=== PATIENT | female | born 1965 | race African-American/Black ===

== ENCOUNTER 2017-08-01 19:46 | Inpatient (IN) | payer OTHER ==
[2017-08-01 20:19] VITALS: BMI 34.7
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
[2017-08-01] MEDS ORDERED: MAGNESIUM HYDROX 2400MG/30ML ORAL SUSPENSION 30 ML CUP PO PRN (21:45)
[2017-08-01] MEDS ORDERED: NICOTINE POLACRILEX 2 MG GUM BC PRN (21:45)
[2017-08-01] MEDS ORDERED: hydrOXYzine PAMOATE 50 MG CAPSULE (FP) PO PRN (21:45)
[2017-08-01] MEDS ORDERED: P-EPHED 60MG/TRIPROLIDI 2.5MG TABLET PO PRN (21:45)
[2017-08-01] MEDS ORDERED: MAGNESIUM CITRATE 300 ML BOTTLE PO PRN (21:45)
[2017-08-01] MEDS ORDERED: guaiFENesin/D-METHORPHAN HB 10 ML UNIT-DOSE CUPS PO PRN (21:45)
[2017-08-01] MEDS ORDERED: LOPERAMIDE HCL 2 MG CAPSULE PO PRN (21:45)
[2017-08-01] MEDS ORDERED: MENTHOL/PHENOL 1 EACH UD MM PRN (21:45)
[2017-08-01] MEDS ORDERED: ALBUTEROL SO4 18 GM HFA INHALER IH PRN (22:35)
[2017-08-02 00:46] LABS: URINE APPEARANCE SLCLOUDY; URINE BILIRUBIN NEGATIVE (NEGATIVE); URINE BLOOD NEGATIVE (NEGATIVE); URINE COLOR YELLOW; URINE GLUCOSE (UA) NEGATIVE (NEGATIVE); URINE KETONE NEGATIVE (NEGATIVE); URINE NITRITE NEGATIVE (NEGATIVE); URINE PROTEIN NEGATIVE (NEGATIVE); URINE UROBILINOGEN NEGATIVE mg/dL (0.2-1.0)
[2017-08-02 00:50] LABS: URINE LEUK ESTERASE 1+ (NEGATIVE)
[2017-08-02 01:04] LABS: EPI CELLS MODERATE /HPF (FEW); URINE MUCUS RARE
[2017-08-02] MEDS: THIAMINE HCL 100 MG TABLET (FP) PO SCH ×2 (01:26→21:38)
[2017-08-02] MEDS: PRENATAL VITAMINS W/ FOLIC ACID TABLET (FP) PO SCH (10:35)
[2017-08-02] MEDS: amLODIPine BESYLATE 5 MG TABLET (FP) PO SCH (10:35)
[2017-08-02] MEDS: NICOTINE 14 MG/24 HOURS TOPICAL PATCH TD SCH (10:36)
[2017-08-02] MEDS: BUDESONIDE/FORMETEROL FUMARATE 80/4.5 mcg INHALER IH SCH ×2 (11:45→21:39)
[2017-08-02] MEDS ORDERED: FLU VACCINE QUAD 60 MCG/0.5 ML (MDV 17-18) IM ONE (12:00)
[2017-08-02 16:25] LABS: HEMATOCRIT 40.5 % (32.4-45.2); HEMOGLOBIN 13.6 GM/dL (10.7-15.3); MCH 33.8 pg (25.7-33.7); MCHC 33.6 g/dl (32.0-36.0); MEAN CELL VOLUME 100.6 fl (80-96); MEAN PLT VOLUME 8.7 fl (7.5-11.1); RBC 4.02 M/mm3 (3.60-5.2); RDW 12.7 % (11.6-15.6); WHITE BLOOD COUNT 5.8 K/mm3 (4.0-10.0)
--- NOTE | 2017-08-02 16:34 | EKG ---
Test Reason : Blood Pressure : / mmHG Vent. Rate : 083 BPM Atrial Rate : 083 BPM P-R Int : 142 ms QRS Dur : 078 ms QT Int : 372 ms P-R-T Axes : 063 058 057 degrees QTc Int : 437 ms NORMAL SINUS RHYTHM NORMAL ECG WHEN COMPARED WITH ECG OF 04-JUL-2014 15:57, NONSPECIFIC T WAVE ABNORMALITY NO LONGER EVIDENT IN ANTERIOR LEADS Confirmed by MINA KESSLER MD ([id number]) on 08/02/2017 4:34:11 PM Referred By: Confirmed By:MINA KESSLER MD
[2017-08-02 16:38] LABS: ALBUMIN 3.4 g/dl (3.4-5.0); ALK PHOS 82 U/L (45-117); ANION GAP 9 (8-16); BILIRUBIN,TOTAL 0.2 mg/dL (0.2-1.0); BLOOD UREA NITROGEN 23 mg/dL (7-18); CALCIUM 9.6 mg/dL (8.5-10.1); CHLORIDE 103 mmol/L (98-107); CO2 29 mmol/L (21-32); CREATININE 1.2 mg/dL (0.55-1.02); GLUCOSE,RANDOM 122 mg/dL (74-106); POTASSIUM 4.3 mmol/L (3.5-5.1); SGOT/AST 23 U/L (15-37); SGPT/ALT 39 U/L (12-78); SODIUM 141 mmol/L (136-145); TOT PROT 6.9 g/dl (6.4-8.2)
[2017-08-02 16:49] LABS: PLATELET COUNT 237 K/MM3 (134-434)
--- NOTE | 2017-08-02 18:54 | PN ---
S Progress Note Note: Psychiatry Attending's on-call note : Asked to enter orders for medications. Request for depakote,abilify and trazodone. Met with patient.S report reviewed. Patient is a good historian. Discharged from [facility] 0n 08/01/17. Diagnosis : Bipolar Disorder and PTSD. Stable mental status. Patient is eager to resume medications. Discharge summary from [facility] seen. Medications confirmed as : Depakote 500 mg po bid Abilify 10 mg po daily Trazodone 50 mg po hs All resumed.Side effects/benefits Discussed with patient (each drug). Consent (verbal) given for this careplan. Met with patient in the presence of nurse on duty.
[2017-08-02] MEDS: MONTELUKAST NA 10 MG TABLET PO SCH (21:38)
[2017-08-02] MEDS: DIVALPROEX SODIUM 500 MG TABLET E.C. PO SCH (21:38)
[2017-08-02] MEDS: traZODone HCL 50 MG TABLET (FP) PO SCH (21:38)
[2017-08-02] MEDS ORDERED: traZODone HCL 150 MG TABLET PO SCH (22:00)
[2017-08-03] MEDS: NICOTINE 14 MG/24 HOURS TOPICAL PATCH TD SCH (10:04)
[2017-08-03] MEDS: ARIPiprazole 10 MG TABLET PO SCH (10:05)
[2017-08-03] MEDS: BUDESONIDE/FORMETEROL FUMARATE 80/4.5 mcg INHALER IH SCH ×2 (10:05→21:57)
[2017-08-03] MEDS: amLODIPine BESYLATE 5 MG TABLET (FP) PO SCH (10:05)
[2017-08-03] MEDS: DIVALPROEX SODIUM 500 MG TABLET E.C. PO SCH ×2 (10:05→21:57)
[2017-08-03] MEDS: PRENATAL VITAMINS W/ FOLIC ACID TABLET (FP) PO SCH (10:05)
[2017-08-03] MEDS: MONTELUKAST NA 10 MG TABLET PO SCH (21:57)
[2017-08-03] MEDS: traZODone HCL 50 MG TABLET (FP) PO SCH (21:57)
[2017-08-03] MEDS: THIAMINE HCL 100 MG TABLET (FP) PO SCH (21:57)
[2017-08-04] MEDS: DIVALPROEX SODIUM 500 MG TABLET E.C. PO SCH ×2 (09:23→21:51)
[2017-08-04] MEDS: ARIPiprazole 10 MG TABLET PO SCH (09:23)
[2017-08-04] MEDS: PRENATAL VITAMINS W/ FOLIC ACID TABLET (FP) PO SCH (09:23)
[2017-08-04] MEDS: BUDESONIDE/FORMETEROL FUMARATE 80/4.5 mcg INHALER IH SCH ×2 (09:24→21:52)
[2017-08-04] MEDS: NICOTINE 14 MG/24 HOURS TOPICAL PATCH TD SCH (09:24)
[2017-08-04] MEDS: amLODIPine BESYLATE 5 MG TABLET (FP) PO SCH (09:24)
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
[2017-08-04] MEDS: THIAMINE HCL 100 MG TABLET (FP) PO SCH (21:51)
[2017-08-04] MEDS: traZODone HCL 50 MG TABLET (FP) PO SCH (21:51)
[2017-08-04] MEDS: MONTELUKAST NA 10 MG TABLET PO SCH (21:51)
[2017-08-05] MEDS ORDERED: PT OWN MED DRAWER 7, Y5N ONE ×2 (08:49→20:02)
[2017-08-05] MEDS: ARIPiprazole 10 MG TABLET PO SCH (09:59)
[2017-08-05] MEDS: DIVALPROEX SODIUM 500 MG TABLET E.C. PO SCH ×2 (09:59→21:53)
[2017-08-05] MEDS: amLODIPine BESYLATE 5 MG TABLET (FP) PO SCH (09:59)
[2017-08-05] MEDS: PRENATAL VITAMINS W/ FOLIC ACID TABLET (FP) PO SCH (09:59)
[2017-08-05] MEDS: NICOTINE 14 MG/24 HOURS TOPICAL PATCH TD SCH (09:59)
[2017-08-05] MEDS: BUDESONIDE/FORMETEROL FUMARATE 80/4.5 mcg INHALER IH SCH ×2 (10:00→21:54)
[2017-08-05] MEDS: GABAPENTIN 100 MG CAPSULE (FP) PO SCH ×2 (15:35→21:53)
[2017-08-05] MEDS: LIDOCAINE 5% TOPICAL PATCH TP SCH (15:35)
[2017-08-05] MEDS: CYCLOBENZAPRINE HCL 10 MG TABLET (FP) PO SCH ×2 (15:35→21:53)
[2017-08-05] MEDS: MONTELUKAST NA 10 MG TABLET PO SCH (21:53)
[2017-08-05] MEDS: traZODone HCL 50 MG TABLET (FP) PO SCH (21:53)
[2017-08-05] MEDS: THIAMINE HCL 100 MG TABLET (FP) PO SCH (21:53)
[2017-08-05] MEDS: LIDOCAINE PATCH REMOVAL MC SCH (21:54)
[2017-08-06] MEDS: CYCLOBENZAPRINE HCL 10 MG TABLET (FP) PO SCH ×3 (06:36→21:55)
[2017-08-06] MEDS: GABAPENTIN 100 MG CAPSULE (FP) PO SCH ×3 (06:36→21:55)
[2017-08-06] MEDS: DIVALPROEX SODIUM 500 MG TABLET E.C. PO SCH ×2 (10:11→21:55)
[2017-08-06] MEDS: amLODIPine BESYLATE 5 MG TABLET (FP) PO SCH (10:11)
[2017-08-06] MEDS: ARIPiprazole 10 MG TABLET PO SCH (10:11)
[2017-08-06] MEDS: NICOTINE 14 MG/24 HOURS TOPICAL PATCH TD SCH (10:11)
[2017-08-06] MEDS: PRENATAL VITAMINS W/ FOLIC ACID TABLET (FP) PO SCH (10:11)
[2017-08-06] MEDS: LIDOCAINE 5% TOPICAL PATCH TP SCH (10:12)
[2017-08-06] MEDS: BUDESONIDE/FORMETEROL FUMARATE 80/4.5 mcg INHALER IH SCH ×2 (10:12→21:56)
[2017-08-06] MEDS ORDERED: ALBUTEROL SO4 2.5/IPRATROPIUM 0.5 INH SOL 3 ML VIAL.NEB. NEB PRN (10:25)
--- NOTE | 2017-08-06 10:28 | PN ---
[facility] Progress Note (SOAP) Subjective: c/o chest tightness, vaginal discharge, abnormal u/a Objective: 08/06/17 10:27 Vital Signs - 24 hr 08/06/17 08/06/17 08/06/17 00:30 03:30 08:12 Temperature 98.2 F Pulse Rate 86 Respiratory 18 18 20 Rate Blood Pressure 110/77 Laboratory Tests 08/01/17 08/02/17 08/02/17 22:47 09:30 09:30 WBC 5.8 RBC 4.02 Hgb 13.6 D Hct 40.5 MCV 100.6 H MCH 33.8 H D MCHC 33.6 RDW 12.7 D Plt Count 237 D MPV 8.7 Platelet Comment No clumping noted Sodium 141 Potassium 4.3 Chloride 103 Carbon Dioxide 29 Anion Gap 9 BUN 23 H Creatinine 1.2 H Creat Clearance w eGFR 47.36 Random Glucose 122 H Calcium 9.6 Total Bilirubin 0.2 AST 23 D ALT 39 D Alkaline Phosphatase 82 Total Protein 6.9 Albumin 3.4 Urine Color Yellow Urine Appearance Slcloudy Urine pH 7.0 D Ur Specific [place] 1.020 Urine Protein Negative Urine Glucose (UA) Negative Urine Ketones Negative Urine Blood Negative Urine Nitrite Negative Urine Bilirubin Negative Urine Urobilinogen Negative Ur Leukocyte Esterase 1+ H Urine WBC (Auto) 32 Urine RBC (Auto) 2 Ur Epithelial Cells Moderate Urine Mucus Rare Valproic Acid RPR Titer HIV 1&2 Antibody Screen HIV P24 Antigen 08/02/17 08/02/17 08/03/17 09:30 10:30 07:30 WBC RBC Hgb Hct MCV MCH MCHC RDW Plt Count MPV Platelet Comment Sodium Potassium Chloride Carbon Dioxide Anion Gap BUN Creatinine Creat Clearance w eGFR Random Glucose Calcium Total Bilirubin AST ALT Alkaline Phosphatase Total Protein Albumin Urine Color Urine Appearance Urine pH Ur Specific [place] Urine Protein Urine Glucose (UA) Urine Ketones Urine Blood Urine Nitrite Urine Bilirubin Urine Urobilinogen Ur Leukocyte Esterase Urine WBC (Auto) Urine RBC (Auto) Ur Epithelial Cells Urine Mucus Valproic Acid 54.484 RPR Titer Nonreactive HIV 1&2 Antibody Screen Negative HIV P24 Antigen Negative dehydration, asthma, r/o uti Assessment: 08/06/17 10:28 duoneb prn ordered for asthma, urine for culture, diflucan for discharge x5 days
[2017-08-06] MEDS: FLUCONAZOLE 100 MG TABLET (UD) PO SCH (11:48)
[2017-08-06] MEDS: MAG HYDROX/AL HYDROX/SIMETH 30 ML UNIT-DOSE CUP PO PRN ×2 (12:02→18:49)
[2017-08-06] MEDS ORDERED: ALBUTEROL SO4 2.5/IPRATROPIUM 0.5 INH SOL 3 ML VIAL.NEB. NEB ONE (13:40)
--- NOTE | 2017-08-06 14:52 | PN ---
S Progress Note Note: c/o leet sided chest pain, repeat ekg wnl, given duoneb w imporvement. cont current treatment Vital Signs - 24 hr 08/06/17 08/06/17 08/06/17 00:30 03:30 08:12 Temperature 98.2 F Pulse Rate 86 Respiratory 18 18 20 Rate Blood Pressure 110/77 08/06/17 13:45 Temperature 98.1 F Pulse Rate 100 H Respiratory 19 Rate Blood Pressure 116/77 Laboratory Tests 08/01/17 08/02/17 08/02/17 22:47 09:30 09:30 WBC 5.8 RBC 4.02 Hgb 13.6 D Hct 40.5 MCV 100.6 H MCH 33.8 H D MCHC 33.6 RDW 12.7 D Plt Count 237 D MPV 8.7 Platelet Comment No clumping noted Sodium 141 Potassium 4.3 Chloride 103 Carbon Dioxide 29 Anion Gap 9 BUN 23 H Creatinine 1.2 H Creat Clearance w eGFR 47.36 Random Glucose 122 H Calcium 9.6 Total Bilirubin 0.2 AST 23 D ALT 39 D Alkaline Phosphatase 82 Total Protein 6.9 Albumin 3.4 Urine Color Yellow Urine Appearance Slcloudy Urine pH 7.0 D Ur Specific [place] 1.020 Urine Protein Negative Urine Glucose (UA) Negative Urine Ketones Negative Urine Blood Negative Urine Nitrite Negative Urine Bilirubin Negative Urine Urobilinogen Negative Ur Leukocyte Esterase 1+ H Urine WBC (Auto) 32 Urine RBC (Auto) 2 Ur Epithelial Cells Moderate Urine Mucus Rare Valproic Acid RPR Titer HIV 1&2 Antibody Screen HIV P24 Antigen 08/02/17 08/02/17 08/03/17 09:30 10:30 07:30 WBC RBC Hgb Hct MCV MCH MCHC RDW Plt Count MPV Platelet Comment Sodium Potassium Chloride Carbon Dioxide Anion Gap BUN Creatinine Creat Clearance w eGFR Random Glucose Calcium Total Bilirubin AST ALT Alkaline Phosphatase Total Protein Albumin Urine Color Urine Appearance Urine pH Ur Specific [place] Urine Protein Urine Glucose (UA) Urine Ketones Urine Blood Urine Nitrite Urine Bilirubin Urine Urobilinogen Ur Leukocyte Esterase Urine WBC (Auto) Urine RBC (Auto) Ur Epithelial Cells Urine Mucus Valproic Acid 54.484 RPR Titer Nonreactive HIV 1&2 Antibody Screen Negative HIV P24 Antigen Negative chest clear, pain on deep inspiration and palpation of chest wall, advil, neurontin, flexeril, fluids, bedrest, treat asthma
[2017-08-06] MEDS: IBUPROFEN 400 MG TABLET (FP) PO PRN (14:55)
--- NOTE | 2017-08-06 15:24 | EKG ---
Test Reason : Blood Pressure : / mmHG Vent. Rate : 094 BPM Atrial Rate : 094 BPM P-R Int : 146 ms QRS Dur : 078 ms QT Int : 354 ms P-R-T Axes : 063 053 067 degrees QTc Int : 442 ms NORMAL SINUS RHYTHM motion artifacts NORMAL ECG WHEN COMPARED WITH ECG OF 02-AUG-2017 08:52, NO SIGNIFICANT CHANGE WAS FOUND Confirmed by CHELSIE CASTREJON MD ([id number]) on 08/06/2017 3:24:27 PM Referred By: Confirmed By:CHELSIE CASTREJON MD
[2017-08-06] MEDS: THIAMINE HCL 100 MG TABLET (FP) PO SCH (21:54)
[2017-08-06] MEDS: LIDOCAINE PATCH REMOVAL MC SCH (21:55)
[2017-08-06] MEDS: traZODone HCL 50 MG TABLET (FP) PO SCH (21:55)
[2017-08-06] MEDS: MONTELUKAST NA 10 MG TABLET PO SCH (21:55)
[2017-08-07] MEDS: CYCLOBENZAPRINE HCL 10 MG TABLET (FP) PO SCH ×3 (06:09→21:34)
[2017-08-07] MEDS: GABAPENTIN 100 MG CAPSULE (FP) PO SCH ×3 (06:09→21:34)
[2017-08-07] MEDS: FLUCONAZOLE 100 MG TABLET (UD) PO SCH (10:26)
[2017-08-07] MEDS: NICOTINE 14 MG/24 HOURS TOPICAL PATCH TD SCH (10:26)
[2017-08-07] MEDS: PRENATAL VITAMINS W/ FOLIC ACID TABLET (FP) PO SCH (10:26)
[2017-08-07] MEDS: BUDESONIDE/FORMETEROL FUMARATE 80/4.5 mcg INHALER IH SCH ×2 (10:26→21:35)
[2017-08-07] MEDS: amLODIPine BESYLATE 5 MG TABLET (FP) PO SCH (10:26)
[2017-08-07] MEDS: DIVALPROEX SODIUM 500 MG TABLET E.C. PO SCH ×2 (10:26→21:34)
[2017-08-07] MEDS: ARIPiprazole 10 MG TABLET PO SCH (10:26)
[2017-08-07] MEDS: LIDOCAINE 5% TOPICAL PATCH TP SCH (10:27)
[2017-08-07] MEDS: MAG HYDROX/AL HYDROX/SIMETH 30 ML UNIT-DOSE CUP PO PRN (10:29)
[2017-08-07] MEDS: PANTOPRAZOLE 40 MG TABLET (FP) PO SCH (12:54)
--- NOTE | 2017-08-07 13:50 | EKG ---
Test Reason : Blood Pressure : / mmHG Vent. Rate : 093 BPM Atrial Rate : 093 BPM P-R Int : 146 ms QRS Dur : 076 ms QT Int : 356 ms P-R-T Axes : 056 051 055 degrees QTc Int : 442 ms NORMAL SINUS RHYTHM CANNOT RULE OUT ANTERIOR INFARCT , AGE UNDETERMINED ABNORMAL ECG WHEN COMPARED WITH ECG OF 02-AUG-2017 08:52, NO SIGNIFICANT CHANGE WAS FOUND Confirmed by JENIFER MARIE, BETTINA ([id number]) on 08/07/2017 1:49:28 PM Referred By: Confirmed By:BETTINA BURGESS MD
[2017-08-07] MEDS: traZODone HCL 50 MG TABLET (FP) PO SCH (21:34)
[2017-08-07] MEDS: MONTELUKAST NA 10 MG TABLET PO SCH (21:34)
[2017-08-07] MEDS: LIDOCAINE PATCH REMOVAL MC SCH (21:34)
[2017-08-07] MEDS: THIAMINE HCL 100 MG TABLET (FP) PO SCH (21:34)
[2017-08-08] MEDS: CYCLOBENZAPRINE HCL 10 MG TABLET (FP) PO SCH ×3 (06:14→21:40)
[2017-08-08] MEDS: GABAPENTIN 100 MG CAPSULE (FP) PO SCH ×3 (06:14→21:40)
[2017-08-08] MEDS: NICOTINE 14 MG/24 HOURS TOPICAL PATCH TD SCH (10:34)
[2017-08-08] MEDS: LIDOCAINE 5% TOPICAL PATCH TP SCH (10:34)
[2017-08-08] MEDS: FLUCONAZOLE 100 MG TABLET (UD) PO SCH (10:35)
[2017-08-08] MEDS: DIVALPROEX SODIUM 500 MG TABLET E.C. PO SCH ×2 (10:35→21:40)
[2017-08-08] MEDS: ARIPiprazole 10 MG TABLET PO SCH (10:35)
[2017-08-08] MEDS: PANTOPRAZOLE 40 MG TABLET (FP) PO SCH (10:35)
[2017-08-08] MEDS: amLODIPine BESYLATE 5 MG TABLET (FP) PO SCH (10:35)
[2017-08-08] MEDS: BUDESONIDE/FORMETEROL FUMARATE 80/4.5 mcg INHALER IH SCH ×2 (10:35→21:41)
[2017-08-08] MEDS: PRENATAL VITAMINS W/ FOLIC ACID TABLET (FP) PO SCH (10:35)
[2017-08-08] MEDS: PSYLLIUM 5.85 GM PACKET PO SCH ×2 (11:20→23:00)
[2017-08-08] MEDS ORDERED: PT OWN MED DRAWER 7, Y5N ONE (19:57)
[2017-08-08] MEDS: THIAMINE HCL 100 MG TABLET (FP) PO SCH (21:40)
[2017-08-08] MEDS: MONTELUKAST NA 10 MG TABLET PO SCH (21:40)
[2017-08-08] MEDS: traZODone HCL 50 MG TABLET (FP) PO SCH (21:41)
[2017-08-08] MEDS: IBUPROFEN 400 MG TABLET (FP) PO PRN (21:42)
[2017-08-08] MEDS: LIDOCAINE PATCH REMOVAL MC SCH (22:59)
[2017-08-09] MEDS ORDERED: PT OWN MED DRAWER 7, Y5N ONE (01:20)
[2017-08-09] MEDS: CYCLOBENZAPRINE HCL 10 MG TABLET (FP) PO SCH ×3 (06:07→21:34)
[2017-08-09] MEDS: GABAPENTIN 100 MG CAPSULE (FP) PO SCH ×3 (06:07→21:34)
[2017-08-09] MEDS: NICOTINE 14 MG/24 HOURS TOPICAL PATCH TD SCH (10:28)
[2017-08-09] MEDS: PANTOPRAZOLE 40 MG TABLET (FP) PO SCH (10:28)
[2017-08-09] MEDS: ARIPiprazole 10 MG TABLET PO SCH (10:28)
[2017-08-09] MEDS: PRENATAL VITAMINS W/ FOLIC ACID TABLET (FP) PO SCH (10:28)
[2017-08-09] MEDS: FLUCONAZOLE 100 MG TABLET (UD) PO SCH (10:28)
[2017-08-09] MEDS: DIVALPROEX SODIUM 500 MG TABLET E.C. PO SCH ×2 (10:28→21:34)
[2017-08-09] MEDS: LIDOCAINE 5% TOPICAL PATCH TP SCH (10:28)
[2017-08-09] MEDS: BUDESONIDE/FORMETEROL FUMARATE 80/4.5 mcg INHALER IH SCH ×2 (10:28→21:35)
[2017-08-09] MEDS: amLODIPine BESYLATE 5 MG TABLET (FP) PO SCH (10:29)
[2017-08-09] MEDS: PSYLLIUM 5.85 GM PACKET PO SCH ×2 (10:29→21:36)
[2017-08-09] MEDS: IBUPROFEN 400 MG TABLET (FP) PO PRN ×2 (13:42→21:37)
[2017-08-09] MEDS: THIAMINE HCL 100 MG TABLET (FP) PO SCH (21:34)
[2017-08-09] MEDS: MONTELUKAST NA 10 MG TABLET PO SCH (21:34)
[2017-08-09] MEDS: traZODone HCL 50 MG TABLET (FP) PO SCH (21:34)
[2017-08-09] MEDS: LIDOCAINE PATCH REMOVAL MC SCH (21:36)
[2017-08-10] MEDS: GABAPENTIN 100 MG CAPSULE (FP) PO SCH ×3 (06:04→21:55)
[2017-08-10] MEDS: CYCLOBENZAPRINE HCL 10 MG TABLET (FP) PO SCH ×3 (06:04→21:54)
[2017-08-10] MEDS: NITROFURANTOIN MACROCRYSTAL 50 MG CAPSULE (FP) PO SCH ×3 (06:48→21:56)
[2017-08-10] MEDS ORDERED: PT OWN MED DRAWER 7, Y5N ONE ×2 (08:48→10:32)
[2017-08-10] MEDS: BUDESONIDE/FORMETEROL FUMARATE 80/4.5 mcg INHALER IH SCH ×2 (10:12→21:55)
[2017-08-10] MEDS: PSYLLIUM 5.85 GM PACKET PO SCH ×2 (10:13→21:58)
[2017-08-10] MEDS: NICOTINE 14 MG/24 HOURS TOPICAL PATCH TD SCH (10:13)
[2017-08-10] MEDS: ARIPiprazole 10 MG TABLET PO SCH (10:14)
[2017-08-10] MEDS: FLUCONAZOLE 100 MG TABLET (UD) PO SCH (10:14)
[2017-08-10] MEDS: PANTOPRAZOLE 40 MG TABLET (FP) PO SCH (10:14)
[2017-08-10] MEDS: PRENATAL VITAMINS W/ FOLIC ACID TABLET (FP) PO SCH (10:14)
[2017-08-10] MEDS: LIDOCAINE 5% TOPICAL PATCH TP SCH (10:14)
[2017-08-10] MEDS: DIVALPROEX SODIUM 500 MG TABLET E.C. PO SCH ×2 (10:14→21:56)
[2017-08-10] MEDS: amLODIPine BESYLATE 5 MG TABLET (FP) PO SCH (10:14)
[2017-08-10] MEDS: ACETAMINOPHEN 325 MG TABLET (FP) PO PRN (13:08)
[2017-08-10] MEDS: THIAMINE HCL 100 MG TABLET (FP) PO SCH (21:54)
[2017-08-10] MEDS: traZODone HCL 50 MG TABLET (FP) PO SCH (21:54)
[2017-08-10] MEDS: MONTELUKAST NA 10 MG TABLET PO SCH (21:55)
[2017-08-10] MEDS: LIDOCAINE PATCH REMOVAL MC SCH (21:56)
[2017-08-11] MEDS: NITROFURANTOIN MACROCRYSTAL 50 MG CAPSULE (FP) PO SCH ×4 (00:40→18:30)
[2017-08-11] MEDS: IBUPROFEN 400 MG TABLET (FP) PO PRN ×3 (03:36→17:59)
[2017-08-11] MEDS: CYCLOBENZAPRINE HCL 10 MG TABLET (FP) PO SCH ×3 (06:19→22:01)
[2017-08-11] MEDS: GABAPENTIN 100 MG CAPSULE (FP) PO SCH ×3 (06:19→22:01)
[2017-08-11] MEDS: ACETAMINOPHEN 325 MG TABLET (FP) PO PRN (06:21)
[2017-08-11] MEDS ORDERED: PT OWN MED DRAWER 7, Y5N ONE ×5 (09:07→20:07)
[2017-08-11] MEDS: PRENATAL VITAMINS W/ FOLIC ACID TABLET (FP) PO SCH (10:22)
[2017-08-11] MEDS: DIVALPROEX SODIUM 500 MG TABLET E.C. PO SCH ×2 (10:22→22:01)
[2017-08-11] MEDS: PANTOPRAZOLE 40 MG TABLET (FP) PO SCH (10:23)
[2017-08-11] MEDS: ARIPiprazole 10 MG TABLET PO SCH (10:23)
[2017-08-11] MEDS: NICOTINE 14 MG/24 HOURS TOPICAL PATCH TD SCH (10:23)
[2017-08-11] MEDS: amLODIPine BESYLATE 5 MG TABLET (FP) PO SCH (10:23)
[2017-08-11] MEDS: LIDOCAINE 5% TOPICAL PATCH TP SCH (10:24)
[2017-08-11] MEDS: PSYLLIUM 5.85 GM PACKET PO SCH ×2 (10:25→22:02)
[2017-08-11] MEDS: BUDESONIDE/FORMETEROL FUMARATE 80/4.5 mcg INHALER IH SCH ×2 (10:26→22:03)
[2017-08-11] MEDS: traZODone HCL 50 MG TABLET (FP) PO SCH (22:01)
[2017-08-11] MEDS: THIAMINE HCL 100 MG TABLET (FP) PO SCH (22:01)
[2017-08-11] MEDS: MONTELUKAST NA 10 MG TABLET PO SCH (22:01)
[2017-08-11] MEDS: LIDOCAINE PATCH REMOVAL MC SCH (22:01)
[2017-08-12] MEDS: NITROFURANTOIN MACROCRYSTAL 50 MG CAPSULE (FP) PO SCH ×5 (00:16→23:13)
[2017-08-12] MEDS: IBUPROFEN 400 MG TABLET (FP) PO PRN ×3 (06:23→21:37)
[2017-08-12] MEDS: GABAPENTIN 100 MG CAPSULE (FP) PO SCH ×3 (06:23→21:37)
[2017-08-12] MEDS: CYCLOBENZAPRINE HCL 10 MG TABLET (FP) PO SCH ×3 (06:23→21:37)
[2017-08-12] MEDS: DIVALPROEX SODIUM 500 MG TABLET E.C. PO SCH ×2 (10:40→21:37)
[2017-08-12] MEDS: BUDESONIDE/FORMETEROL FUMARATE 80/4.5 mcg INHALER IH SCH ×2 (10:40→21:36)
[2017-08-12] MEDS: NICOTINE 14 MG/24 HOURS TOPICAL PATCH TD SCH (10:40)
[2017-08-12] MEDS: ARIPiprazole 10 MG TABLET PO SCH (10:40)
[2017-08-12] MEDS: LIDOCAINE 5% TOPICAL PATCH TP SCH (10:40)
[2017-08-12] MEDS: PRENATAL VITAMINS W/ FOLIC ACID TABLET (FP) PO SCH (10:40)
[2017-08-12] MEDS: amLODIPine BESYLATE 5 MG TABLET (FP) PO SCH (10:40)
[2017-08-12] MEDS: PANTOPRAZOLE 40 MG TABLET (FP) PO SCH (10:40)
[2017-08-12] MEDS: PSYLLIUM 5.85 GM PACKET PO SCH ×2 (10:41→21:37)
[2017-08-12] MEDS: MONTELUKAST NA 10 MG TABLET PO SCH (21:37)
[2017-08-12] MEDS: LIDOCAINE PATCH REMOVAL MC SCH (21:37)
[2017-08-12] MEDS: THIAMINE HCL 100 MG TABLET (FP) PO SCH (21:37)
[2017-08-12] MEDS: traZODone HCL 50 MG TABLET (FP) PO SCH (21:37)
[2017-08-12] MEDS ORDERED: PT OWN MED DRAWER 7, Y5N ONE (23:12)
[2017-08-13] MEDS: NITROFURANTOIN MACROCRYSTAL 50 MG CAPSULE (FP) PO SCH ×4 (06:33→23:12)
[2017-08-13] MEDS: GABAPENTIN 100 MG CAPSULE (FP) PO SCH ×3 (06:33→22:05)
[2017-08-13] MEDS: CYCLOBENZAPRINE HCL 10 MG TABLET (FP) PO SCH ×3 (06:33→22:05)
[2017-08-13] MEDS: IBUPROFEN 400 MG TABLET (FP) PO PRN ×3 (06:33→23:11)
[2017-08-13] MEDS: NICOTINE 14 MG/24 HOURS TOPICAL PATCH TD SCH (10:42)
[2017-08-13] MEDS: BUDESONIDE/FORMETEROL FUMARATE 80/4.5 mcg INHALER IH SCH ×2 (10:42→22:05)
[2017-08-13] MEDS: PANTOPRAZOLE 40 MG TABLET (FP) PO SCH (10:43)
[2017-08-13] MEDS: amLODIPine BESYLATE 5 MG TABLET (FP) PO SCH (10:43)
[2017-08-13] MEDS: PSYLLIUM 5.85 GM PACKET PO SCH ×2 (10:43→22:06)
[2017-08-13] MEDS: ARIPiprazole 10 MG TABLET PO SCH (10:43)
[2017-08-13] MEDS: DIVALPROEX SODIUM 500 MG TABLET E.C. PO SCH ×2 (10:43→22:05)
[2017-08-13] MEDS: LIDOCAINE 5% TOPICAL PATCH TP SCH (10:43)
[2017-08-13] MEDS: PRENATAL VITAMINS W/ FOLIC ACID TABLET (FP) PO SCH (10:43)
[2017-08-13] MEDS ORDERED: PT OWN MED DRAWER 7, Y5N ONE (19:41)
[2017-08-13] MEDS: traZODone HCL 50 MG TABLET (FP) PO SCH (22:05)
[2017-08-13] MEDS: MONTELUKAST NA 10 MG TABLET PO SCH (22:05)
[2017-08-13] MEDS: THIAMINE HCL 100 MG TABLET (FP) PO SCH (22:05)
[2017-08-13] MEDS: LIDOCAINE PATCH REMOVAL MC SCH (22:06)
[2017-08-14] MEDS: IBUPROFEN 400 MG TABLET (FP) PO PRN ×3 (06:29→19:45)
[2017-08-14] MEDS: GABAPENTIN 100 MG CAPSULE (FP) PO SCH ×3 (06:29→21:51)
[2017-08-14] MEDS: CYCLOBENZAPRINE HCL 10 MG TABLET (FP) PO SCH ×3 (06:29→21:51)
[2017-08-14] MEDS: NITROFURANTOIN MACROCRYSTAL 50 MG CAPSULE (FP) PO SCH ×4 (07:00→23:18)
[2017-08-14] MEDS ORDERED: PT OWN MED DRAWER 7, Y5N ONE (08:33)
[2017-08-14] MEDS: PRENATAL VITAMINS W/ FOLIC ACID TABLET (FP) PO SCH (10:41)
[2017-08-14] MEDS: DIVALPROEX SODIUM 500 MG TABLET E.C. PO SCH ×2 (10:42→21:51)
[2017-08-14] MEDS: PANTOPRAZOLE 40 MG TABLET (FP) PO SCH (10:42)
[2017-08-14] MEDS: PSYLLIUM 5.85 GM PACKET PO SCH ×2 (10:42→21:45)
[2017-08-14] MEDS: ARIPiprazole 10 MG TABLET PO SCH (10:42)
[2017-08-14] MEDS: amLODIPine BESYLATE 5 MG TABLET (FP) PO SCH (10:42)
[2017-08-14] MEDS: BUDESONIDE/FORMETEROL FUMARATE 80/4.5 mcg INHALER IH SCH ×2 (10:43→21:52)
[2017-08-14] MEDS: NICOTINE 14 MG/24 HOURS TOPICAL PATCH TD SCH (10:43)
[2017-08-14] MEDS: LIDOCAINE 5% TOPICAL PATCH TP SCH (10:43)
[2017-08-14] MEDS: MONTELUKAST NA 10 MG TABLET PO SCH (21:51)
[2017-08-14] MEDS: traZODone HCL 50 MG TABLET (FP) PO SCH (21:51)
[2017-08-14] MEDS: THIAMINE HCL 100 MG TABLET (FP) PO SCH (21:51)
[2017-08-14] MEDS: LIDOCAINE PATCH REMOVAL MC SCH (22:16)
[2017-08-15] MEDS: NITROFURANTOIN MACROCRYSTAL 50 MG CAPSULE (FP) PO SCH (06:55)
[2017-08-15] MEDS: GABAPENTIN 100 MG CAPSULE (FP) PO SCH (06:55)
[2017-08-15] MEDS: CYCLOBENZAPRINE HCL 10 MG TABLET (FP) PO SCH (06:55)
[2017-08-15] MEDS: IBUPROFEN 400 MG TABLET (FP) PO PRN (06:56)
[2017-08-15 07:49] VITALS: TEMP 97.2
[2017-08-15 09:25] VITALS: BP 101/68; PULSE 106
[2017-08-15] MEDS: DIVALPROEX SODIUM 500 MG TABLET E.C. PO SCH (09:27)
[2017-08-15] MEDS: PANTOPRAZOLE 40 MG TABLET (FP) PO SCH (09:27)
[2017-08-15] MEDS: PRENATAL VITAMINS W/ FOLIC ACID TABLET (FP) PO SCH (09:27)
[2017-08-15] MEDS: amLODIPine BESYLATE 5 MG TABLET (FP) PO SCH (09:27)
[2017-08-15] MEDS: ARIPiprazole 10 MG TABLET PO SCH (09:27)
[2017-08-15] MEDS: LIDOCAINE 5% TOPICAL PATCH TP SCH (09:27)
[2017-08-15] MEDS: PSYLLIUM 5.85 GM PACKET PO SCH (09:27)
[2017-08-15] MEDS: BUDESONIDE/FORMETEROL FUMARATE 80/4.5 mcg INHALER IH SCH (09:27)
[2017-08-15] MEDS: NICOTINE 14 MG/24 HOURS TOPICAL PATCH TD SCH ×2 (09:28→09:32)
== END 2017-08-15 09:36 | disposition home or self-care (01) | DRG 772 ==
LOC: YASAS 19:46 → Y3E 20:48
PROVIDERS: ADMIT Psychiatry & Neurology Psychiatry; ATTEND Psychiatry & Neurology Psychiatry
PROC: HZ42ZZZ Group Counseling for Substance Abuse Treatment, Cognitive-Behavioral (ICD-10-PCS; principal; 2017-08-01)
DX: F10.230 Alcohol dependence with withdrawal, uncomplicated (principal); F14.20 Cocaine dependence, uncomplicated; F12.20 Cannabis dependence, uncomplicated; F31.81 Bipolar II disorder; R44.0 Auditory hallucinations; I10 Essential (primary) hypertension; J45.50 Severe persistent asthma, uncomplicated; K21.9 Gastro-esophageal reflux disease without esophagitis; M16.12 Unilateral primary osteoarthritis, left hip; Z91.5 Personal history of self-harm; Z87.42 Personal history of other diseases of the female genital tract
CPT/HCPCS: 36415; 80053; 80164; 81003; 81015; 85027; 86593; 87086; 87186; 87389; 90688; 93005; 93010; 94640

== ENCOUNTER 2018-10-13 10:24 | Inpatient (IN) | payer OTHER ==
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
[2018-10-13] MEDS ORDERED: P-EPHED 60MG/TRIPROLIDI 2.5MG TABLET PO PRN (12:42)
[2018-10-13] MEDS ORDERED: MAGNESIUM CITRATE 300 ML BOTTLE PO PRN (12:42)
[2018-10-13] MEDS ORDERED: guaiFENesin 200 MG/10 ML 10 ML UNIT-DOSE CUPS PO PRN (12:42)
[2018-10-13] MEDS ORDERED: MENTHOL/PHENOL 1 EACH UD MM PRN (12:42)
[2018-10-13] MEDS ORDERED: ALBUTEROL SO4 0.083% IH SOL 2.5 MG/3 ML VIAL.NEB. NEB PRN (12:43)
[2018-10-13 12:56] VITALS: BMI 34.0
[2018-10-13] MEDS: THIAMINE HCL 100 MG TABLET (FP) PO SCH (21:47)
[2018-10-14 01:29] LABS: URINE APPEARANCE TURBID; URINE BILIRUBIN NEGATIVE (NEGATIVE); URINE COLOR YELLOW; URINE GLUCOSE (UA) NEGATIVE (NEGATIVE); URINE KETONE NEGATIVE (NEGATIVE); URINE LEUK ESTERASE NEGATIVE (NEGATIVE); URINE NITRITE NEGATIVE (NEGATIVE); URINE PROTEIN NEGATIVE (NEGATIVE); URINE UROBILINOGEN 0.2 mg/dL (0.2-1.0)
[2018-10-14] MEDS: PRENATAL VITAMINS W/ FOLIC ACID TABLET (FP) PO SCH (10:05)
[2018-10-14 12:44] LABS: HEMATOCRIT 41.1 % (32.4-45.2); HEMOGLOBIN 13.8 GM/dL (10.7-15.3); MCH 34.2 pg (25.7-33.7); MCHC 33.5 g/dl (32.0-36.0); MEAN CELL VOLUME 102.3 fl (80-96); MEAN PLT VOLUME 8.4 fl (7.5-11.1); PLATELET COUNT 244 K/MM3 (134-434); RBC 4.02 M/mm3 (3.60-5.2); RDW 13.1 % (11.6-15.6); WHITE BLOOD COUNT 5.3 K/mm3 (4.0-10.0)
[2018-10-14 12:56] LABS: ALBUMIN 3.3 g/dl (3.4-5.0); ALK PHOS 84 U/L (45-117); ANION GAP 9 MMOL/L (8-16); BILIRUBIN,TOTAL 0.3 mg/dL (0.2-1); BLOOD UREA NITROGEN 10 mg/dL (7-18); CHLORIDE 109 mmol/L (98-107); CO2 26 mmol/L (21-32); CREATININE 0.9 mg/dL (0.55-1.3); GLUCOSE,RANDOM 107 mg/dL (74-106); POTASSIUM 4.2 mmol/L (3.5-5.1); SGOT/AST 12 U/L (15-37); SGPT/ALT 17 U/L (13-61); SODIUM 144 mmol/L (136-145); TOT PROT 6.5 g/dl (6.4-8.2)
[2018-10-14] MEDS: THIAMINE HCL 100 MG TABLET (FP) PO SCH (21:36)
[2018-10-14] MEDS: MELATONIN 5 MG TABLETS PO PRN (21:37)
[2018-10-15] MEDS: PRENATAL VITAMINS W/ FOLIC ACID TABLET (FP) PO SCH (10:11)
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
[2018-10-15] MEDS: ARIPiprazole 10 MG TABLET PO SCH (12:29)
[2018-10-15] MEDS: MAG HYDROX/AL HYDROX/SIMETH 30 ML UNIT-DOSE CUP PO PRN (16:56)
[2018-10-15] MEDS: THIAMINE HCL 100 MG TABLET (FP) PO SCH (21:32)
[2018-10-15] MEDS: DIVALPROEX SODIUM 500 MG TABLET E.C. PO SCH (21:33)
[2018-10-15] MEDS: traZODone HCL 100 MG TABLET (FP) PO SCH (21:33)
[2018-10-15] MEDS: BUDESONIDE/FORMETEROL FUMARATE 80/4.5 mcg INHALER IH SCH (21:35)
[2018-10-16] MEDS: PRENATAL VITAMINS W/ FOLIC ACID TABLET (FP) PO SCH (10:16)
[2018-10-16] MEDS: ARIPiprazole 10 MG TABLET PO SCH (10:16)
[2018-10-16] MEDS: BUDESONIDE/FORMETEROL FUMARATE 80/4.5 mcg INHALER IH SCH ×2 (10:17→21:19)
[2018-10-16] MEDS: MAG HYDROX/AL HYDROX/SIMETH 30 ML UNIT-DOSE CUP PO PRN (17:35)
[2018-10-16] MEDS ORDERED: PT OWN MED DRAWER 7, Y5N ONE (20:30)
[2018-10-16] MEDS: DIVALPROEX SODIUM 500 MG TABLET E.C. PO SCH (21:19)
[2018-10-16] MEDS: THIAMINE HCL 100 MG TABLET (FP) PO SCH (21:19)
[2018-10-16] MEDS: traZODone HCL 100 MG TABLET (FP) PO SCH (21:19)
[2018-10-17] MEDS: BUDESONIDE/FORMETEROL FUMARATE 80/4.5 mcg INHALER IH SCH ×2 (10:22→21:33)
[2018-10-17] MEDS: ARIPiprazole 10 MG TABLET PO SCH (10:22)
[2018-10-17] MEDS: PRENATAL VITAMINS W/ FOLIC ACID TABLET (FP) PO SCH (10:22)
[2018-10-17] MEDS: ACETAMINOPHEN 325 MG TABLET (FP) PO PRN (10:22)
[2018-10-17] MEDS: MAG HYDROX/AL HYDROX/SIMETH 30 ML UNIT-DOSE CUP PO PRN (16:24)
[2018-10-17] MEDS: traZODone HCL 100 MG TABLET (FP) PO SCH (21:32)
[2018-10-17] MEDS: DIVALPROEX SODIUM 500 MG TABLET E.C. PO SCH (21:32)
[2018-10-17] MEDS: THIAMINE HCL 100 MG TABLET (FP) PO SCH (21:32)
[2018-10-18] MEDS: BUDESONIDE/FORMETEROL FUMARATE 80/4.5 mcg INHALER IH SCH ×2 (09:39→21:27)
[2018-10-18] MEDS: ARIPiprazole 10 MG TABLET PO SCH (09:39)
[2018-10-18] MEDS: PRENATAL VITAMINS W/ FOLIC ACID TABLET (FP) PO SCH (09:39)
[2018-10-18] MEDS: ACETAMINOPHEN 325 MG TABLET (FP) PO PRN ×2 (09:40→21:26)
[2018-10-18] MEDS: DIVALPROEX SODIUM 500 MG TABLET E.C. PO SCH (21:26)
[2018-10-18] MEDS: traZODone HCL 100 MG TABLET (FP) PO SCH (21:26)
[2018-10-18] MEDS: THIAMINE HCL 100 MG TABLET (FP) PO SCH (21:27)
[2018-10-19] MEDS: ARIPiprazole 10 MG TABLET PO SCH (09:52)
[2018-10-19] MEDS: BUDESONIDE/FORMETEROL FUMARATE 80/4.5 mcg INHALER IH SCH ×2 (09:52→21:16)
[2018-10-19] MEDS: PRENATAL VITAMINS W/ FOLIC ACID TABLET (FP) PO SCH (09:52)
[2018-10-19] MEDS: IBUPROFEN 400 MG TABLET (FP) PO PRN (09:54)
[2018-10-19] MEDS: LIDOCAINE 5% TOPICAL PATCH TP SCH (13:30)
[2018-10-19] MEDS: THIAMINE HCL 100 MG TABLET (FP) PO SCH (21:15)
[2018-10-19] MEDS: traZODone HCL 100 MG TABLET (FP) PO SCH (21:16)
[2018-10-19] MEDS: DIVALPROEX SODIUM 500 MG TABLET E.C. PO SCH (21:16)
[2018-10-19] MEDS: LIDOCAINE PATCH REMOVAL MC SCH (21:16)
[2018-10-19] MEDS: ACETAMINOPHEN 325 MG TABLET (FP) PO PRN (21:17)
[2018-10-19] MEDS: MAG HYDROX/AL HYDROX/SIMETH 30 ML UNIT-DOSE CUP PO PRN (21:18)
[2018-10-20] MEDS ORDERED: ARIPiprazole 5 MG TABLET (FP) ONE (08:48)
[2018-10-20] MEDS: LIDOCAINE 5% TOPICAL PATCH TP SCH (10:06)
[2018-10-20] MEDS: ARIPiprazole 10 MG TABLET PO SCH (10:06)
[2018-10-20] MEDS: PRENATAL VITAMINS W/ FOLIC ACID TABLET (FP) PO SCH (10:07)
[2018-10-20] MEDS: PANTOPRAZOLE 40 MG TABLET (FP) PO SCH (10:07)
[2018-10-20] MEDS: IBUPROFEN 400 MG TABLET (FP) PO PRN (10:07)
[2018-10-20] MEDS: BUDESONIDE/FORMETEROL FUMARATE 80/4.5 mcg INHALER IH SCH ×2 (10:07→21:25)
--- NOTE | 2018-10-20 12:09 | PN ---
S Progress Note Note: PT C/O STOMACH DISCOMFORT. HX OF ACID REFLUX AND TAKES OMEPRAZOLE. ALERT O X 3. Vital Signs - 24 hr 10/20/18 10/20/18 10/20/18 03:30 06:59 09:05 Temperature 98.6 F Pulse Rate 88 101 H Respiratory 18 18 17 Rate Blood Pressure 111/81 100/69 Laboratory Tests 10/13/18 10/14/18 10/14/18 17:03 07:30 07:30 WBC 5.3 RBC 4.02 Hgb 13.8 Hct 41.1 MCV 102.3 H MCH 34.2 H MCHC 33.5 RDW 13.1 Plt Count 244 MPV 8.4 Sodium 144 Potassium 4.2 Chloride 109 H Carbon Dioxide 26 Anion Gap 9 BUN 10 Creatinine 0.9 Creat Clearance w eGFR 65.50 Random Glucose 107 H Calcium 9.0 Total Bilirubin 0.3 AST 12 L ALT 17 Alkaline Phosphatase 84 Total Protein 6.5 Albumin 3.3 L Urine Color Yellow Urine Appearance Turbid Urine pH 5.0 D Ur Specific [place] 1.025 Urine Protein Negative Urine Glucose (UA) Negative Urine Ketones Negative Urine Blood Negative Urine Nitrite Negative Urine Bilirubin Negative Urine Urobilinogen 0.2 Ur Leukocyte Esterase Negative Valproic Acid RPR Titer HIV 1&2 Antibody Screen HIV P24 Antigen 10/14/18 10/14/18 10/19/18 07:30 07:30 08:30 WBC RBC Hgb Hct MCV MCH MCHC RDW Plt Count MPV Sodium Potassium Chloride Carbon Dioxide Anion Gap BUN Creatinine Creat Clearance w eGFR Random Glucose Calcium Total Bilirubin AST ALT Alkaline Phosphatase Total Protein Albumin Urine Color Urine Appearance Urine pH Ur Specific [place] Urine Protein Urine Glucose (UA) Urine Ketones Urine Blood Urine Nitrite Urine Bilirubin Urine Urobilinogen Ur Leukocyte Esterase Valproic Acid 74.0 RPR Titer Nonreactive HIV 1&2 Antibody Screen Negative HIV P24 Antigen Negative A:GERD EXACERBATION NAD PLAN:START PROTONIX 40 MG PO DAILY.
[2018-10-20] MEDS ORDERED: PT OWN MED DRAWER 7, Y5N ONE (20:26)
[2018-10-20] MEDS: DIVALPROEX SODIUM 500 MG TABLET E.C. PO SCH (21:25)
[2018-10-20] MEDS: LIDOCAINE PATCH REMOVAL MC SCH (21:25)
[2018-10-20] MEDS: THIAMINE HCL 100 MG TABLET (FP) PO SCH (21:25)
[2018-10-20] MEDS: traZODone HCL 100 MG TABLET (FP) PO SCH (21:25)
[2018-10-20] MEDS: MAG HYDROX/AL HYDROX/SIMETH 30 ML UNIT-DOSE CUP PO PRN (21:26)
[2018-10-21] MEDS ORDERED: PT OWN MED DRAWER 7, Y5N ONE ×2 (09:17→10:31)
[2018-10-21] MEDS: PRENATAL VITAMINS W/ FOLIC ACID TABLET (FP) PO SCH (10:30)
[2018-10-21] MEDS: LIDOCAINE 5% TOPICAL PATCH TP SCH (10:30)
[2018-10-21] MEDS: ARIPiprazole 10 MG TABLET PO SCH (10:30)
[2018-10-21] MEDS: PANTOPRAZOLE 40 MG TABLET (FP) PO SCH (10:31)
[2018-10-21] MEDS: IBUPROFEN 400 MG TABLET (FP) PO PRN ×2 (10:31→21:32)
[2018-10-21] MEDS: BUDESONIDE/FORMETEROL FUMARATE 80/4.5 mcg INHALER IH SCH ×2 (10:32→21:33)
--- NOTE | 2018-10-21 15:43 | PN ---
[facility] Progress Note Note: client takes folic acid 1 mg at home. While in rehab, she will be receiving a pre-kofi vitamin that contains 0.8mg of folic acid. At this time, we will not add folic acid to her treatment regimen because she will have sufficient folic acid from the pre- vitamin and her diet. She can resume the folic acid upon discharge.
[2018-10-21] MEDS: THIAMINE HCL 100 MG TABLET (FP) PO SCH (21:29)
[2018-10-21] MEDS: LIDOCAINE PATCH REMOVAL MC SCH (21:30)
[2018-10-21] MEDS: traZODone HCL 100 MG TABLET (FP) PO SCH (21:30)
[2018-10-21] MEDS: DIVALPROEX SODIUM 500 MG TABLET E.C. PO SCH (21:30)
[2018-10-21] MEDS: MONTELUKAST NA 10 MG TABLET PO SCH (21:31)
[2018-10-21] MEDS: MAG HYDROX/AL HYDROX/SIMETH 30 ML UNIT-DOSE CUP PO PRN (21:31)
[2018-10-22] MEDS ORDERED: ARIPiprazole 5 MG TABLET (FP) ONE (09:03)
[2018-10-22] MEDS ORDERED: PT OWN MED DRAWER 7, Y5N ONE (09:03)
[2018-10-22] MEDS ORDERED: FOLIC ACID 1 MG TABLET (FP) PO SCH (10:00)
[2018-10-22] MEDS: IBUPROFEN 400 MG TABLET (FP) PO PRN ×2 (10:03→21:52)
[2018-10-22] MEDS: MAG HYDROX/AL HYDROX/SIMETH 30 ML UNIT-DOSE CUP PO PRN ×2 (10:03→21:52)
[2018-10-22] MEDS: LIDOCAINE 5% TOPICAL PATCH TP SCH (10:03)
[2018-10-22] MEDS: PRENATAL VITAMINS W/ FOLIC ACID TABLET (FP) PO SCH (10:04)
[2018-10-22] MEDS: BUDESONIDE/FORMETEROL FUMARATE 80/4.5 mcg INHALER IH SCH ×2 (10:04→21:53)
[2018-10-22] MEDS: PANTOPRAZOLE 40 MG TABLET (FP) PO SCH (10:04)
[2018-10-22] MEDS: ARIPiprazole 10 MG TABLET PO SCH (10:08)
[2018-10-22] MEDS: DIVALPROEX SODIUM 500 MG TABLET E.C. PO SCH (21:52)
[2018-10-22] MEDS: THIAMINE HCL 100 MG TABLET (FP) PO SCH (21:52)
[2018-10-22] MEDS: MONTELUKAST NA 10 MG TABLET PO SCH (21:53)
[2018-10-22] MEDS: traZODone HCL 100 MG TABLET (FP) PO SCH (21:53)
[2018-10-22] MEDS: LIDOCAINE PATCH REMOVAL MC SCH (21:53)
[2018-10-23] MEDS: IBUPROFEN 400 MG TABLET (FP) PO PRN (09:45)
[2018-10-23] MEDS: PRENATAL VITAMINS W/ FOLIC ACID TABLET (FP) PO SCH (09:45)
[2018-10-23] MEDS: PANTOPRAZOLE 40 MG TABLET (FP) PO SCH (09:46)
[2018-10-23] MEDS: LIDOCAINE 5% TOPICAL PATCH TP SCH (09:46)
[2018-10-23] MEDS: BUDESONIDE/FORMETEROL FUMARATE 80/4.5 mcg INHALER IH SCH ×2 (09:46→22:13)
[2018-10-23] MEDS: ARIPiprazole 10 MG TABLET PO SCH (09:46)
[2018-10-23] MEDS: ACETAMINOPHEN 325 MG TABLET (FP) PO PRN (14:08)
[2018-10-23] MEDS: THIAMINE HCL 100 MG TABLET (FP) PO SCH (22:09)
[2018-10-23] MEDS: DIVALPROEX SODIUM 500 MG TABLET E.C. PO SCH (22:09)
[2018-10-23] MEDS: LIDOCAINE PATCH REMOVAL MC SCH (22:11)
[2018-10-23] MEDS: CYCLOBENZAPRINE HCL 5 MG TABLET PO SCH (22:12)
[2018-10-23] MEDS: MAGNESIUM HYDROX 2400MG/30ML ORAL SUSPENSION 30 ML CUP PO PRN (22:12)
[2018-10-23] MEDS: traZODone HCL 100 MG TABLET (FP) PO SCH (22:12)
[2018-10-23] MEDS: MONTELUKAST NA 10 MG TABLET PO SCH (22:13)
[2018-10-24] MEDS: CYCLOBENZAPRINE HCL 5 MG TABLET PO SCH ×3 (06:37→21:43)
[2018-10-24] MEDS: LIDOCAINE 5% TOPICAL PATCH TP SCH (10:30)
[2018-10-24] MEDS: PRENATAL VITAMINS W/ FOLIC ACID TABLET (FP) PO SCH (10:31)
[2018-10-24] MEDS: ARIPiprazole 10 MG TABLET PO SCH (10:31)
[2018-10-24] MEDS: PANTOPRAZOLE 40 MG TABLET (FP) PO SCH (10:31)
[2018-10-24] MEDS: IBUPROFEN 400 MG TABLET (FP) PO PRN ×2 (10:32→21:44)
[2018-10-24] MEDS: BUDESONIDE/FORMETEROL FUMARATE 80/4.5 mcg INHALER IH SCH ×2 (10:32→21:49)
[2018-10-24] MEDS: THIAMINE HCL 100 MG TABLET (FP) PO SCH (21:43)
[2018-10-24] MEDS: MONTELUKAST NA 10 MG TABLET PO SCH (21:43)
[2018-10-24] MEDS: DIVALPROEX SODIUM 500 MG TABLET E.C. PO SCH (21:43)
[2018-10-24] MEDS: traZODone HCL 100 MG TABLET (FP) PO SCH (21:43)
[2018-10-24] MEDS: MAG HYDROX/AL HYDROX/SIMETH 30 ML UNIT-DOSE CUP PO PRN (21:45)
[2018-10-24] MEDS: LIDOCAINE PATCH REMOVAL MC SCH (21:49)
[2018-10-25] MEDS: CYCLOBENZAPRINE HCL 5 MG TABLET PO SCH ×3 (06:29→21:36)
[2018-10-25] MEDS: PRENATAL VITAMINS W/ FOLIC ACID TABLET (FP) PO SCH (09:57)
[2018-10-25] MEDS: ARIPiprazole 10 MG TABLET PO SCH (09:57)
[2018-10-25] MEDS: IBUPROFEN 400 MG TABLET (FP) PO PRN (09:57)
[2018-10-25] MEDS: BUDESONIDE/FORMETEROL FUMARATE 80/4.5 mcg INHALER IH SCH ×2 (09:58→21:38)
[2018-10-25] MEDS: LIDOCAINE 5% TOPICAL PATCH TP SCH (09:58)
[2018-10-25] MEDS: PANTOPRAZOLE 40 MG TABLET (FP) PO SCH (09:58)
[2018-10-25] MEDS: MAG HYDROX/AL HYDROX/SIMETH 30 ML UNIT-DOSE CUP PO PRN ×2 (09:58→21:37)
[2018-10-25] MEDS ORDERED: PT OWN MED DRAWER 7, Y5N ONE (19:42)
[2018-10-25] MEDS: DIVALPROEX SODIUM 500 MG TABLET E.C. PO SCH (21:35)
[2018-10-25] MEDS: MELATONIN 5 MG TABLETS PO PRN (21:36)
[2018-10-25] MEDS: MONTELUKAST NA 10 MG TABLET PO SCH (21:36)
[2018-10-25] MEDS: traZODone HCL 100 MG TABLET (FP) PO SCH (21:36)
[2018-10-25] MEDS: LIDOCAINE PATCH REMOVAL MC SCH (21:38)
[2018-10-25] MEDS: THIAMINE HCL 100 MG TABLET (FP) PO SCH (21:38)
[2018-10-26] MEDS: CYCLOBENZAPRINE HCL 5 MG TABLET PO SCH ×3 (06:36→21:59)
[2018-10-26] MEDS: MAGNESIUM HYDROX 2400MG/30ML ORAL SUSPENSION 30 ML CUP PO PRN (06:38)
[2018-10-26] MEDS: PANTOPRAZOLE 40 MG TABLET (FP) PO SCH (10:18)
[2018-10-26] MEDS: BUDESONIDE/FORMETEROL FUMARATE 80/4.5 mcg INHALER IH SCH ×2 (10:18→22:00)
[2018-10-26] MEDS: ARIPiprazole 10 MG TABLET PO SCH (10:18)
[2018-10-26] MEDS: PRENATAL VITAMINS W/ FOLIC ACID TABLET (FP) PO SCH (10:18)
[2018-10-26] MEDS: LIDOCAINE 5% TOPICAL PATCH TP SCH (10:18)
[2018-10-26] MEDS: COLLOIDAL OATMEAL 1 BAR EACH TP PRN (10:56)
[2018-10-26] MEDS ORDERED: PT OWN MED DRAWER 7, Y5N ONE (12:00)
[2018-10-26] MEDS: traZODone HCL 100 MG TABLET (FP) PO SCH (21:59)
[2018-10-26] MEDS: THIAMINE HCL 100 MG TABLET (FP) PO SCH (21:59)
[2018-10-26] MEDS: MONTELUKAST NA 10 MG TABLET PO SCH (21:59)
[2018-10-26] MEDS: IBUPROFEN 400 MG TABLET (FP) PO PRN (21:59)
[2018-10-26] MEDS: DIVALPROEX SODIUM 500 MG TABLET E.C. PO SCH (21:59)
[2018-10-26] MEDS: LIDOCAINE PATCH REMOVAL MC SCH (22:01)
[2018-10-27] MEDS: CYCLOBENZAPRINE HCL 5 MG TABLET PO SCH ×3 (06:36→21:43)
[2018-10-27] MEDS ORDERED: PT OWN MED DRAWER 7, Y5N ONE ×2 (09:29→20:11)
[2018-10-27] MEDS: LIDOCAINE 5% TOPICAL PATCH TP SCH (10:22)
[2018-10-27] MEDS: PRENATAL VITAMINS W/ FOLIC ACID TABLET (FP) PO SCH (10:23)
[2018-10-27] MEDS: ARIPiprazole 10 MG TABLET PO SCH (10:23)
[2018-10-27] MEDS: PANTOPRAZOLE 40 MG TABLET (FP) PO SCH (10:23)
[2018-10-27] MEDS: BUDESONIDE/FORMETEROL FUMARATE 80/4.5 mcg INHALER IH SCH ×2 (10:23→21:44)
[2018-10-27] MEDS: DIVALPROEX SODIUM 500 MG TABLET E.C. PO SCH (21:43)
[2018-10-27] MEDS: THIAMINE HCL 100 MG TABLET (FP) PO SCH (21:43)
[2018-10-27] MEDS: MONTELUKAST NA 10 MG TABLET PO SCH (21:43)
[2018-10-27] MEDS: LIDOCAINE PATCH REMOVAL MC SCH (21:44)
[2018-10-27] MEDS: traZODone HCL 100 MG TABLET (FP) PO SCH (21:44)
[2018-10-28] MEDS: CYCLOBENZAPRINE HCL 5 MG TABLET PO SCH ×3 (06:52→21:35)
[2018-10-28] MEDS ORDERED: PT OWN MED DRAWER 7, Y5N ONE (09:23)
[2018-10-28] MEDS: PRENATAL VITAMINS W/ FOLIC ACID TABLET (FP) PO SCH (10:53)
[2018-10-28] MEDS: ARIPiprazole 10 MG TABLET PO SCH (10:53)
[2018-10-28] MEDS: PANTOPRAZOLE 40 MG TABLET (FP) PO SCH (10:54)
[2018-10-28] MEDS: LIDOCAINE 5% TOPICAL PATCH TP SCH (10:54)
[2018-10-28] MEDS: BUDESONIDE/FORMETEROL FUMARATE 80/4.5 mcg INHALER IH SCH ×2 (10:54→21:37)
[2018-10-28] MEDS: MAG HYDROX/AL HYDROX/SIMETH 30 ML UNIT-DOSE CUP PO PRN (10:55)
[2018-10-28] MEDS: THIAMINE HCL 100 MG TABLET (FP) PO SCH (21:35)
[2018-10-28] MEDS: traZODone HCL 100 MG TABLET (FP) PO SCH (21:35)
[2018-10-28] MEDS: DIVALPROEX SODIUM 500 MG TABLET E.C. PO SCH (21:35)
[2018-10-28] MEDS: MONTELUKAST NA 10 MG TABLET PO SCH (21:35)
[2018-10-28] MEDS: MAGNESIUM HYDROX 2400MG/30ML ORAL SUSPENSION 30 ML CUP PO PRN (21:36)
[2018-10-28] MEDS: LIDOCAINE PATCH REMOVAL MC SCH (21:36)
[2018-10-29] MEDS: CYCLOBENZAPRINE HCL 5 MG TABLET PO SCH ×3 (06:29→21:17)
[2018-10-29] MEDS ORDERED: PT OWN MED DRAWER 7, Y5N ONE (08:49)
[2018-10-29] MEDS: ARIPiprazole 10 MG TABLET PO SCH (09:59)
[2018-10-29] MEDS: LIDOCAINE 5% TOPICAL PATCH TP SCH (09:59)
[2018-10-29] MEDS: BUDESONIDE/FORMETEROL FUMARATE 80/4.5 mcg INHALER IH SCH ×2 (09:59→21:18)
[2018-10-29] MEDS: PANTOPRAZOLE 40 MG TABLET (FP) PO SCH (10:00)
[2018-10-29] MEDS: PRENATAL VITAMINS W/ FOLIC ACID TABLET (FP) PO SCH (10:00)
[2018-10-29] MEDS: NICOTINE POLACRILEX 2 MG GUM BUC PRN (13:51)
[2018-10-29] MEDS: DIVALPROEX SODIUM 500 MG TABLET E.C. PO SCH (21:17)
[2018-10-29] MEDS: MONTELUKAST NA 10 MG TABLET PO SCH (21:17)
[2018-10-29] MEDS: THIAMINE HCL 100 MG TABLET (FP) PO SCH (21:17)
[2018-10-29] MEDS: LIDOCAINE PATCH REMOVAL MC SCH (21:17)
[2018-10-29] MEDS: traZODone HCL 100 MG TABLET (FP) PO SCH (21:17)
[2018-10-30] MEDS: CYCLOBENZAPRINE HCL 5 MG TABLET PO SCH ×3 (06:33→21:30)
[2018-10-30] MEDS: ARIPiprazole 10 MG TABLET PO SCH (10:13)
[2018-10-30] MEDS: BUDESONIDE/FORMETEROL FUMARATE 80/4.5 mcg INHALER IH SCH ×2 (10:13→21:31)
[2018-10-30] MEDS: PRENATAL VITAMINS W/ FOLIC ACID TABLET (FP) PO SCH (10:13)
[2018-10-30] MEDS: LIDOCAINE 5% TOPICAL PATCH TP SCH (10:13)
[2018-10-30] MEDS: PANTOPRAZOLE 40 MG TABLET (FP) PO SCH (10:13)
[2018-10-30] MEDS: traZODone HCL 100 MG TABLET (FP) PO SCH (21:30)
[2018-10-30] MEDS: MELATONIN 5 MG TABLETS PO PRN (21:30)
[2018-10-30] MEDS: DIVALPROEX SODIUM 500 MG TABLET E.C. PO SCH (21:30)
[2018-10-30] MEDS: MONTELUKAST NA 10 MG TABLET PO SCH (21:31)
[2018-10-30] MEDS: LIDOCAINE PATCH REMOVAL MC SCH (21:31)
[2018-10-30] MEDS: THIAMINE HCL 100 MG TABLET (FP) PO SCH (21:31)
[2018-10-30] MEDS ORDERED: PT OWN MED DRAWER 7, Y5N ONE (21:32)
[2018-10-30] MEDS: MAGNESIUM HYDROX 2400MG/30ML ORAL SUSPENSION 30 ML CUP PO PRN (21:32)
[2018-10-31] MEDS: CYCLOBENZAPRINE HCL 5 MG TABLET PO SCH ×3 (06:24→21:51)
[2018-10-31] MEDS: LIDOCAINE 5% TOPICAL PATCH TP SCH (10:05)
[2018-10-31] MEDS: PANTOPRAZOLE 40 MG TABLET (FP) PO SCH (10:06)
[2018-10-31] MEDS: BUDESONIDE/FORMETEROL FUMARATE 80/4.5 mcg INHALER IH SCH ×2 (10:06→21:51)
[2018-10-31] MEDS: PRENATAL VITAMINS W/ FOLIC ACID TABLET (FP) PO SCH (10:06)
[2018-10-31] MEDS: ARIPiprazole 10 MG TABLET PO SCH (10:06)
[2018-10-31] MEDS: NICOTINE POLACRILEX 2 MG GUM BUC PRN (12:32)
[2018-10-31] MEDS: THIAMINE HCL 100 MG TABLET (FP) PO SCH (21:50)
[2018-10-31] MEDS: DIVALPROEX SODIUM 500 MG TABLET E.C. PO SCH (21:51)
[2018-10-31] MEDS: MONTELUKAST NA 10 MG TABLET PO SCH (21:51)
[2018-10-31] MEDS: traZODone HCL 100 MG TABLET (FP) PO SCH (21:51)
[2018-10-31] MEDS: LIDOCAINE PATCH REMOVAL MC SCH (21:51)
[2018-11-01] MEDS: CYCLOBENZAPRINE HCL 5 MG TABLET PO SCH ×3 (06:32→21:30)
[2018-11-01] MEDS: PRENATAL VITAMINS W/ FOLIC ACID TABLET (FP) PO SCH (10:04)
[2018-11-01] MEDS: PANTOPRAZOLE 40 MG TABLET (FP) PO SCH (10:05)
[2018-11-01] MEDS: ARIPiprazole 10 MG TABLET PO SCH (10:05)
[2018-11-01] MEDS: BUDESONIDE/FORMETEROL FUMARATE 80/4.5 mcg INHALER IH SCH ×2 (10:07→21:31)
[2018-11-01] MEDS: LIDOCAINE 5% TOPICAL PATCH TP SCH (10:07)
[2018-11-01] MEDS ORDERED: PT OWN MED DRAWER 7, Y5N ONE (10:07)
[2018-11-01] MEDS: ALBUTEROL SO4 8 GM HFA INHALER IH PRN (10:41)
[2018-11-01] MEDS ORDERED: ALBUTEROL SO4 2.5/IPRATROPIUM 0.5 INH SOL 3 ML VIAL.NEB. NEB PRN (11:56)
[2018-11-01] MEDS: MAG HYDROX/AL HYDROX/SIMETH 30 ML UNIT-DOSE CUP PO PRN (13:29)
[2018-11-01] MEDS: IBUPROFEN 400 MG TABLET (FP) PO PRN (19:51)
[2018-11-01] MEDS: DIVALPROEX SODIUM 500 MG TABLET E.C. PO SCH (21:30)
[2018-11-01] MEDS: MONTELUKAST NA 10 MG TABLET PO SCH (21:30)
[2018-11-01] MEDS: traZODone HCL 100 MG TABLET (FP) PO SCH (21:30)
[2018-11-01] MEDS: THIAMINE HCL 100 MG TABLET (FP) PO SCH (21:30)
[2018-11-01] MEDS: LIDOCAINE PATCH REMOVAL MC SCH (21:31)
[2018-11-02] MEDS: CYCLOBENZAPRINE HCL 5 MG TABLET PO SCH ×3 (06:18→21:40)
[2018-11-02] MEDS: MAGNESIUM HYDROX 2400MG/30ML ORAL SUSPENSION 30 ML CUP PO PRN (06:19)
[2018-11-02] MEDS: PANTOPRAZOLE 40 MG TABLET (FP) PO SCH (09:45)
[2018-11-02] MEDS: LIDOCAINE 5% TOPICAL PATCH TP SCH (09:45)
[2018-11-02] MEDS: PRENATAL VITAMINS W/ FOLIC ACID TABLET (FP) PO SCH (09:45)
[2018-11-02] MEDS ORDERED: PT OWN MED DRAWER 7, Y5N ONE (09:45)
[2018-11-02] MEDS: ARIPiprazole 10 MG TABLET PO SCH (09:45)
[2018-11-02] MEDS: COLLOIDAL OATMEAL 1 BAR EACH TP PRN (09:46)
[2018-11-02] MEDS: BUDESONIDE/FORMETEROL FUMARATE 80/4.5 mcg INHALER IH SCH ×2 (09:46→21:41)
[2018-11-02] MEDS: traZODone HCL 100 MG TABLET (FP) PO SCH (21:40)
[2018-11-02] MEDS: MONTELUKAST NA 10 MG TABLET PO SCH (21:40)
[2018-11-02] MEDS: THIAMINE HCL 100 MG TABLET (FP) PO SCH (21:40)
[2018-11-02] MEDS: DIVALPROEX SODIUM 500 MG TABLET E.C. PO SCH (21:40)
[2018-11-02] MEDS: LIDOCAINE PATCH REMOVAL MC SCH (21:40)
[2018-11-03] MEDS: CYCLOBENZAPRINE HCL 5 MG TABLET PO SCH ×3 (06:14→21:30)
[2018-11-03] MEDS ORDERED: PT OWN MED DRAWER 7, Y5N ONE (08:52)
[2018-11-03] MEDS: PANTOPRAZOLE 40 MG TABLET (FP) PO SCH (10:07)
[2018-11-03] MEDS: BUDESONIDE/FORMETEROL FUMARATE 80/4.5 mcg INHALER IH SCH ×2 (10:07→23:01)
[2018-11-03] MEDS: ARIPiprazole 10 MG TABLET PO SCH (10:07)
[2018-11-03] MEDS: PRENATAL VITAMINS W/ FOLIC ACID TABLET (FP) PO SCH (10:07)
[2018-11-03] MEDS: LIDOCAINE 5% TOPICAL PATCH TP SCH (10:08)
[2018-11-03] MEDS: IBUPROFEN 400 MG TABLET (FP) PO PRN (10:09)
[2018-11-03] MEDS: NICOTINE POLACRILEX 2 MG GUM BUC PRN (10:12)
[2018-11-03] MEDS: DIVALPROEX SODIUM 500 MG TABLET E.C. PO SCH (21:30)
[2018-11-03] MEDS: MONTELUKAST NA 10 MG TABLET PO SCH (21:30)
[2018-11-03] MEDS: traZODone HCL 100 MG TABLET (FP) PO SCH (21:30)
[2018-11-03] MEDS: THIAMINE HCL 100 MG TABLET (FP) PO SCH (21:30)
[2018-11-03] MEDS: MELATONIN 5 MG TABLETS PO PRN (21:31)
[2018-11-03] MEDS: LIDOCAINE PATCH REMOVAL MC SCH (22:40)
[2018-11-04] MEDS ORDERED: PT OWN MED DRAWER 7, Y5N ONE ×2 (02:59→19:11)
[2018-11-04] MEDS: CYCLOBENZAPRINE HCL 5 MG TABLET PO SCH ×3 (06:16→21:17)
[2018-11-04] MEDS: BUDESONIDE/FORMETEROL FUMARATE 80/4.5 mcg INHALER IH SCH ×2 (09:51→21:19)
[2018-11-04] MEDS: LIDOCAINE 5% TOPICAL PATCH TP SCH (09:51)
[2018-11-04] MEDS: PRENATAL VITAMINS W/ FOLIC ACID TABLET (FP) PO SCH (09:51)
[2018-11-04] MEDS: ARIPiprazole 10 MG TABLET PO SCH (09:51)
[2018-11-04] MEDS: PANTOPRAZOLE 40 MG TABLET (FP) PO SCH (09:51)
[2018-11-04] MEDS: IBUPROFEN 400 MG TABLET (FP) PO PRN ×2 (09:52→16:47)
[2018-11-04] MEDS: NICOTINE POLACRILEX 2 MG GUM BUC PRN (09:53)
[2018-11-04] MEDS: traZODone HCL 100 MG TABLET (FP) PO SCH (21:17)
[2018-11-04] MEDS: DIVALPROEX SODIUM 500 MG TABLET E.C. PO SCH (21:17)
[2018-11-04] MEDS: THIAMINE HCL 100 MG TABLET (FP) PO SCH (21:17)
[2018-11-04] MEDS: MONTELUKAST NA 10 MG TABLET PO SCH (21:17)
[2018-11-04] MEDS: LIDOCAINE PATCH REMOVAL MC SCH (21:18)
[2018-11-05] MEDS: CYCLOBENZAPRINE HCL 5 MG TABLET PO SCH ×3 (06:16→21:32)
[2018-11-05] MEDS: ARIPiprazole 10 MG TABLET PO SCH (09:43)
[2018-11-05] MEDS: PRENATAL VITAMINS W/ FOLIC ACID TABLET (FP) PO SCH (09:44)
[2018-11-05] MEDS: PANTOPRAZOLE 40 MG TABLET (FP) PO SCH (09:44)
[2018-11-05] MEDS: LIDOCAINE 5% TOPICAL PATCH TP SCH (09:44)
[2018-11-05] MEDS: BUDESONIDE/FORMETEROL FUMARATE 80/4.5 mcg INHALER IH SCH ×2 (09:44→21:33)
[2018-11-05] MEDS: NICOTINE POLACRILEX 2 MG GUM BUC PRN (09:45)
[2018-11-05] MEDS: MAG HYDROX/AL HYDROX/SIMETH 30 ML UNIT-DOSE CUP PO PRN (09:46)
[2018-11-05] MEDS: DIVALPROEX SODIUM 500 MG TABLET E.C. PO SCH (21:32)
[2018-11-05] MEDS: MONTELUKAST NA 10 MG TABLET PO SCH (21:32)
[2018-11-05] MEDS: traZODone HCL 100 MG TABLET (FP) PO SCH (21:32)
[2018-11-05] MEDS: THIAMINE HCL 100 MG TABLET (FP) PO SCH (21:32)
[2018-11-05] MEDS: LIDOCAINE PATCH REMOVAL MC SCH (21:33)
[2018-11-06] MEDS: CYCLOBENZAPRINE HCL 5 MG TABLET PO SCH ×3 (06:36→21:19)
[2018-11-06] MEDS: ALBUTEROL SO4 8 GM HFA INHALER IH PRN (06:39)
[2018-11-06] MEDS ORDERED: PT OWN MED DRAWER 7, Y5N ONE (08:30)
[2018-11-06] MEDS: BUDESONIDE/FORMETEROL FUMARATE 80/4.5 mcg INHALER IH SCH ×2 (09:36→23:27)
[2018-11-06] MEDS: LIDOCAINE 5% TOPICAL PATCH TP SCH (09:36)
[2018-11-06] MEDS: ARIPiprazole 10 MG TABLET PO SCH (09:36)
[2018-11-06] MEDS: PRENATAL VITAMINS W/ FOLIC ACID TABLET (FP) PO SCH (09:36)
[2018-11-06] MEDS: PANTOPRAZOLE 40 MG TABLET (FP) PO SCH (09:36)
[2018-11-06] MEDS ORDERED: ALBUTEROL SO4 2.5/IPRATROPIUM 0.5 INH SOL 3 ML VIAL.NEB. NEB PRN (11:56)
[2018-11-06] MEDS: MAG HYDROX/AL HYDROX/SIMETH 30 ML UNIT-DOSE CUP PO PRN (17:57)
[2018-11-06] MEDS: traZODone HCL 100 MG TABLET (FP) PO SCH (21:19)
[2018-11-06] MEDS: DIVALPROEX SODIUM 500 MG TABLET E.C. PO SCH (21:19)
[2018-11-06] MEDS: MONTELUKAST NA 10 MG TABLET PO SCH (21:19)
[2018-11-06] MEDS: THIAMINE HCL 100 MG TABLET (FP) PO SCH (21:21)
[2018-11-06] MEDS: MELATONIN 5 MG TABLETS PO PRN (21:21)
[2018-11-06] MEDS: LIDOCAINE PATCH REMOVAL MC SCH (23:27)
[2018-11-07] MEDS: CYCLOBENZAPRINE HCL 5 MG TABLET PO SCH ×3 (06:10→21:29)
[2018-11-07] MEDS: IBUPROFEN 400 MG TABLET (FP) PO PRN (10:02)
[2018-11-07] MEDS: ARIPiprazole 10 MG TABLET PO SCH (10:03)
[2018-11-07] MEDS: PRENATAL VITAMINS W/ FOLIC ACID TABLET (FP) PO SCH (10:03)
[2018-11-07] MEDS: PANTOPRAZOLE 40 MG TABLET (FP) PO SCH (10:03)
[2018-11-07] MEDS: BUDESONIDE/FORMETEROL FUMARATE 80/4.5 mcg INHALER IH SCH ×2 (10:04→22:36)
[2018-11-07] MEDS: LIDOCAINE 5% TOPICAL PATCH TP SCH (10:04)
[2018-11-07] MEDS: NICOTINE POLACRILEX 2 MG GUM BUC PRN (14:54)
[2018-11-07] MEDS: MONTELUKAST NA 10 MG TABLET PO SCH (21:29)
[2018-11-07] MEDS: MELATONIN 5 MG TABLETS PO PRN (21:29)
[2018-11-07] MEDS: THIAMINE HCL 100 MG TABLET (FP) PO SCH (21:29)
[2018-11-07] MEDS: traZODone HCL 100 MG TABLET (FP) PO SCH (21:29)
[2018-11-07] MEDS: DIVALPROEX SODIUM 500 MG TABLET E.C. PO SCH (21:29)
[2018-11-07] MEDS: MAG HYDROX/AL HYDROX/SIMETH 30 ML UNIT-DOSE CUP PO PRN (21:30)
[2018-11-07] MEDS: LIDOCAINE PATCH REMOVAL MC SCH (22:36)
[2018-11-08] MEDS: CYCLOBENZAPRINE HCL 5 MG TABLET PO SCH ×3 (06:39→21:00)
[2018-11-08] MEDS ORDERED: PT OWN MED DRAWER 7, Y5N ONE (08:53)
[2018-11-08] MEDS: LIDOCAINE 5% TOPICAL PATCH TP SCH (10:35)
[2018-11-08] MEDS: ARIPiprazole 10 MG TABLET PO SCH (10:36)
[2018-11-08] MEDS: PRENATAL VITAMINS W/ FOLIC ACID TABLET (FP) PO SCH (10:36)
[2018-11-08] MEDS: PANTOPRAZOLE 40 MG TABLET (FP) PO SCH (10:36)
[2018-11-08] MEDS: IBUPROFEN 400 MG TABLET (FP) PO PRN (10:38)
[2018-11-08] MEDS: BUDESONIDE/FORMETEROL FUMARATE 80/4.5 mcg INHALER IH SCH ×2 (10:43→21:00)
[2018-11-08] MEDS: traZODone HCL 100 MG TABLET (FP) PO SCH (20:59)
[2018-11-08] MEDS: DIVALPROEX SODIUM 500 MG TABLET E.C. PO SCH (20:59)
[2018-11-08] MEDS: THIAMINE HCL 100 MG TABLET (FP) PO SCH (21:00)
[2018-11-08] MEDS: LIDOCAINE PATCH REMOVAL MC SCH (21:00)
[2018-11-08] MEDS: MONTELUKAST NA 10 MG TABLET PO SCH (21:00)
[2018-11-08] MEDS: MELATONIN 5 MG TABLETS PO PRN (21:00)
[2018-11-09] MEDS: CYCLOBENZAPRINE HCL 5 MG TABLET PO SCH ×3 (06:20→21:04)
[2018-11-09] MEDS ORDERED: PT OWN MED DRAWER 7, Y5N ONE (08:46)
[2018-11-09] MEDS: LIDOCAINE 5% TOPICAL PATCH TP SCH (10:49)
[2018-11-09] MEDS: ARIPiprazole 10 MG TABLET PO SCH (10:50)
[2018-11-09] MEDS: PRENATAL VITAMINS W/ FOLIC ACID TABLET (FP) PO SCH (10:50)
[2018-11-09] MEDS: PANTOPRAZOLE 40 MG TABLET (FP) PO SCH (10:50)
[2018-11-09] MEDS: BUDESONIDE/FORMETEROL FUMARATE 80/4.5 mcg INHALER IH SCH ×2 (10:51→21:06)
[2018-11-09] MEDS: NICOTINE POLACRILEX 2 MG GUM BUC PRN ×2 (14:05→17:11)
--- NOTE | 2018-11-09 15:10 | PN ---
[facility] Progress Note Note: Patient is scheduled for discharge tomorrow. Scripts for 30 days supply of medications(Abilify 20 mg/d, Depakote 1000 mg/hs and Trazadone 100 mg/hs) will be electronically transmitted to [facility] at [address] [place] [phone]
[2018-11-09] MEDS: LIDOCAINE PATCH REMOVAL MC SCH (21:04)
[2018-11-09] MEDS: traZODone HCL 100 MG TABLET (FP) PO SCH (21:04)
[2018-11-09] MEDS: MONTELUKAST NA 10 MG TABLET PO SCH (21:04)
[2018-11-09] MEDS: DIVALPROEX SODIUM 500 MG TABLET E.C. PO SCH (21:04)
[2018-11-09] MEDS: MELATONIN 5 MG TABLETS PO PRN (21:04)
[2018-11-09] MEDS: THIAMINE HCL 100 MG TABLET (FP) PO SCH (21:04)
[2018-11-10] MEDS: CYCLOBENZAPRINE HCL 5 MG TABLET PO SCH (06:11)
[2018-11-10 07:23] VITALS: BP 126/86; PULSE 101; TEMP 98.3
--- NOTE | 2018-11-10 08:17 | PN ---
[facility] Progress Note (SOAP) Subjective: Patient to be discharge today at 8:30 AM. Objective: 11/10/18 08:25 CBC, BMP 10/14/18 07:30 10/14/18 07:30 11/10/18 08:25 Vital Signs (72 hours) 11/07/18 11/08/18 11/08/18 09:05 03:30 07:26 Temperature 98.0 F Pulse Rate 78 93 H Respiratory 16 18 18 Rate Blood Pressure 110/60 115/79 11/08/18 11/09/18 11/09/18 09:22 00:30 03:30 Temperature Pulse Rate 103 H Respiratory 18 18 18 Rate Blood Pressure 111/79 11/09/18 11/10/18 11/10/18 07:04 00:30 03:30 Temperature 97.9 F Pulse Rate 97 H Respiratory 18 18 18 Rate Blood Pressure 106/73 11/10/18 07:22 Temperature 98.3 F Pulse Rate 101 H Respiratory 18 Rate Blood Pressure 126/86 11/10/18 08:25 A+O X #3, No neurological deficits noted. Lungs clear, Heart rate regular. Abd soft, non-tender, non-distended. Medically stable for discharge. Assessment: Medically stable for discharge 11/10/18 08:28 Discharge dx: Cocaine Dependance,chronic HTN GERD Asthma Depression Plan: Patient has has a mental health appointment at the [facility] in [facility]. Gets primary care from Ms. Richard at [address] in [facility]. She will receive aftercare at [facility]. Home Medications prescribed and transmitted to [facility].
[2018-11-10] MEDS ORDERED: PT OWN MED DRAWER 7, Y5N ONE (08:38)
== END 2018-11-10 08:42 | disposition home or self-care (01) | DRG 772 ==
LOC: YASAS 10:24 → Y3E 14:47
PROVIDERS: ADMIT Neuromusculoskeletal Medicine & OMM; ATTEND Neuromusculoskeletal Medicine & OMM
PROC: HZ42ZZZ Group Counseling for Substance Abuse Treatment, Cognitive-Behavioral (ICD-10-PCS; principal; 2018-10-13)
DX: F10.20 Alcohol dependence, uncomplicated (principal); F14.20 Cocaine dependence, uncomplicated; F12.20 Cannabis dependence, uncomplicated; F17.210 Nicotine dependence, cigarettes, uncomplicated; F31.81 Bipolar II disorder; F43.10 Post-traumatic stress disorder, unspecified; F19.24 Other psychoactive substance dependence with psychoactive substance-induced mood disorder; F19.282 Other psychoactive substance dependence with psychoactive substance-induced sleep disorder; I10 Essential (primary) hypertension; E78.00 Pure hypercholesterolemia, unspecified; J45.909 Unspecified asthma, uncomplicated; K21.9 Gastro-esophageal reflux disease without esophagitis; K29.50 Unspecified chronic gastritis without bleeding; Z87.42 Personal history of other diseases of the female genital tract; Z91.5 Personal history of self-harm
CPT/HCPCS: 36415; 80053; 80164; 81003; 85027; 86593; 87389; 94640